=== PATIENT | female | born 1985 | race Caucasian/White ===

== ENCOUNTER 2023-11-20 14:05 | Emergency (ER) | payer OTHER, SELFPAY ==
[2023-11-20] VITALS (7 sets, daily range): BP systolic 74–141; BP diastolic 50–90; BMI 22.6
[2023-11-20 14:54] LABS: Urine Albumin 1+ (Neg - Trace); Urine Bilirubin Negative (Negative); Urine Character Very Cloudy (Clear); Urine Color Yellow; Urine Glucose Negative (Negative); Urine Ketone 1+ (Negative); Urine Leukocyte Trace (Negative); Urine Nitrite Negative (Negative); Urine Occult Blood 4+ (Negative); Urine Urobilinogen Negative (Neg - 1+)
[2023-11-20 15:15] LABS: Urine Squamous Cell >30 /LPF (Few)
[2023-11-20 15:16] LABS: Urine Bacteria Few (Negative)
[2023-11-20 15:17] LABS: Urine Red Blood Cell 60-70 /HPF (0-2); Urine White Cell 0-2 /HPF (0-5)
[2023-11-20 17:25] LABS: % Basophils 0.8 % (0-2); % Eosinophils 1.3 % (0-6); % Immature Granulocytes 0.3 % (0-0.5); % Lymphocytes 28.2 % (20.5-51.1); % Monocytes 6.7 % (1.7-9.3); % Neutrophils 62.7 % (42.2-75.2); Absolute Eosinophils 0.1 10^3/uL (0-0.7); Absolute Lymphocytes 1.1 10^3/uL (1.2-3.4); Absolute Monocytes 0.3 10^3/uL (0.1-0.6); Absolute Neutrophils 2.4 10^3/uL (1.4-6.5); Hematocrit 34.4 % (37.0-47.0); Hemoglobin 11.9 g/dL (12.0-16.0); Mean Corp Hgb Conc. 34.6 g/dL (33.0-37.0); Mean Corpuscular Volume 92.5 fL (81.0-99.0); Mean Platelet Volume 9.7 fL (7.4-10.4); Nucleated Red Blood Cells % 0 %; Platelet Count 239 10^3/uL (130-400); Red Blood Cell Count 3.72 10^6/uL (4.20-5.40); Red Cell Dist. Width 14.2 % (11.5-14.5); White Blood Cell Count 3.9 10^3/uL (4.8-10.8)
--- NOTE | 2023-11-20 17:55 | ED.GENMED ---
History of Present Illness
<Tian Rizvi PA-C - Last Filed: 11/20/23 20:24>
General
Chief Complaint: Urinary Symptoms
Time Seen by Provider: 11/20/23 16:58
History of Present Illness
History of Present Illness:
38-year-old female presents the emergency department for evaluation of nonresolving intermittent hematuria, dysuria, and urinary urgency ongoing for the past 2 weeks. She has been treated as an outpatient with 2 rounds of Macrobid and 1 round of
Bactrim without complete relief. Denies any fevers but does have chills and lower abdominal pain as well as low back pain. No vomiting or diarrhea. Has a history of cervical cancer currently in remission
Past History
<Tian Rizvi PA-C - Last Filed: 11/20/23 20:24>
Past History
ED Past Medical History: Asthma and Other (mitral valve regurg)
ED Past Surgical History: None
Social History
Tobacco: Non-smoker
Alcohol: Occasional
Personal:
Living: with family
Family History
Family History: Negative Early CAD or Sudden
Review of Systems
<Tian Rizvi PA-C - Last Filed: 11/20/23 20:24>
Review of Systems
Allergies reviewed?: Yes
All Other Systems: ROS reviewed and negative except as documented in HPI and ROS
Phy Exam
<Tian Rizvi PA-C - Last Filed: 11/20/23 20:24>
Physical Exam
Physical Exam:
GEN: Well appearing, NAD, WDWN
HEENT: Oral mucosa moist, no scleral icterus
Cardiac: Regular rate
Lung: No respiratory distress, no tachypnea
Abdomen: Soft, nontender, no CVA tenderness
MSK: No gross deformity or injuries
Skin: Good color, no pallor or jaundice, no rashes
Neuro: AO x3, moves all extremities freely
Psych: Calm, cooperative
Course
<Tian Rizvi PA-C - Last Filed: 11/20/23 20:24>
Orders/Labs/Results
Orders:
Orders
11/20/23 14:22
Test Result ONCE
11/20/23 14:28
Urinalysis Reflex To Culture Urgent
Date Specimen was Collected: 11/20/23
Time Specimen was Collected: 14:22
Urine Microscopic Reflex Cult Urgent
11/20/23 17:16
Complete Blood Count/With Diff Urgent
11/20/23 17:36
Comprehensive Metabolic Panel Urgent
HCG, Serum Qualitative Screen Urgent
11/20/23 17:53
CT Abd/pelvis Wo Iv Cont Urgent
Reason For Exam: bilat flank pain, persistent UTI
Abnormal Lab Results
11/20/23 11/20/23 11/20/23
14:28 17:16 17:36
WBC 3.9 L 10^3/uL
(4.8-10.8)
RBC 3.72 L 10^6/uL
(4.20-5.40)
Hgb 11.9 L g/dL
(12.0-16.0)
Hct 34.4 L %
(37.0-47.0)
MCH 32.0 H pg
(27.0-31.0)
Absolute Lymphs (auto) 1.1 L 10^3/uL
(1.2-3.4)
BUN 6 L mg/dl
(7-17)
Urine Ketones 1+ A
(Negative)
Ur Occult Blood Reflex 4+ A
(Negative)
Leukocyte Esterase Rfl Trace A
(Negative)
Urine RBC 60-70 A /HPF
(0-2)
Urine Bacteria (Reflex) Few A
(Negative)
Urine Albumin (Reflex) 1+ A
(Neg - Trace)
11/20/23 17:16
11/20/23 17:36
Vital Signs
Initial and Last Documented VS:
Initial Vital Signs
Temp Pulse Resp BP Pulse Ox
98.4 F 99 18 137/90 98
11/20/23 14:17 11/20/23 14:17 11/20/23 14:17 11/20/23 14:17 11/20/23 14:17
Last Documented Vital Signs
Temp Pulse Resp BP Pulse Ox
98.2 F 88 18 122/74 99
11/20/23 19:36 11/20/23 19:36 11/20/23 19:36 11/20/23 19:36 11/20/23 19:36
<Shelbie Doyle, DO - Last Filed: 11/20/23 19:39>
Orders/Labs/Results
Orders:
Orders
11/20/23 14:22
Test Result ONCE
11/20/23 14:28
Urinalysis Reflex To Culture Urgent
Date Specimen was Collected: 11/20/23
Time Specimen was Collected: 14:22
Urine Microscopic Reflex Cult Urgent
11/20/23 17:16
Complete Blood Count/With Diff Urgent
11/20/23 17:36
Comprehensive Metabolic Panel Urgent
HCG, Serum Qualitative Screen Urgent
11/20/23 17:53
CT Abd/pelvis Wo Iv Cont Urgent
Reason For Exam: bilat flank pain, persistent UTI
Abnormal Lab Results
11/20/23 11/20/23 11/20/23
14:28 17:16 17:36
WBC 3.9 L 10^3/uL
(4.8-10.8)
RBC 3.72 L 10^6/uL
(4.20-5.40)
Hgb 11.9 L g/dL
(12.0-16.0)
Hct 34.4 L %
(37.0-47.0)
MCH 32.0 H pg
(27.0-31.0)
Absolute Lymphs (auto) 1.1 L 10^3/uL
(1.2-3.4)
BUN 6 L mg/dl
(7-17)
Urine Ketones 1+ A
(Negative)
Ur Occult Blood Reflex 4+ A
(Negative)
Leukocyte Esterase Rfl Trace A
(Negative)
Urine RBC 60-70 A /HPF
(0-2)
Urine Bacteria (Reflex) Few A
(Negative)
Urine Albumin (Reflex) 1+ A
(Neg - Trace)
11/20/23 17:16
11/20/23 17:36
Vital Signs
Initial and Last Documented VS:
Initial Vital Signs
Temp Pulse Resp BP Pulse Ox
98.4 F 99 18 137/90 98
11/20/23 14:17 11/20/23 14:17 11/20/23 14:17 11/20/23 14:17 11/20/23 14:17
Last Documented Vital Signs
Temp Pulse Resp BP Pulse Ox
98.2 F 88 18 122/74 99
11/20/23 19:36 11/20/23 19:36 11/20/23 19:36 11/20/23 19:36 11/20/23 19:36
<Tian Rizvi PA-C - Last Filed: 11/20/23 20:24>
MDM/Problems Addressed
MDM/Problems Addressed:
She is clinically well-appearing with normal labs. CT was obtained to evaluate for urinary obstructive pathology in the setting of failure of outpatient management. CT was reassuring with the exception of bladder wall thickening. Will treat
patient with course of cefdinir however she is strongly advised to follow-up with urology if symptoms do not resolve as given the burden of hematuria and her urine specimen I am concerned for possible occult malignancy if her symptoms do not resolve
<Tian Rizvi PA-C - Last Filed: 11/20/23 20:24>
*Critical Care Note
Total Time (30-74mins, 75-104mins- exclusive of procedures): Not Applicable
ED Attending Note
<Tian Rizvi PA-C - Last Filed: 11/20/23 20:24>
-
Portions of this chart may have been created with voice recognition software.� Occasional wrong word or��sound alike� substitutions may have occurred due to the inherent limitations of voice recognition software.
<Shelbie Doyle DO - Last Filed: 11/20/23 19:39>
ED Attending Note
Patient seen and examined by attending physician: Yes
I performed the substantive portion of visit, reviewed & personally made and approve the management plan that is documented in note by myself or LETTY.: Yes
I performed a history and physical exam of patient and discussed management with resident, I reviewed resident's note and agree with documented findings and plan of care.: Yes
ED Attending Note:
Patient seen and evaluated at bedside, 38-year-old female with prior history of cervical cancer presenting for persistent urinary symptoms. Patient reports for the past 3 weeks she has had dysuria and hematuria. She has been on several
antibiotics, Macrobid and Bactrim, however symptoms are not improving. She is starting to have lower abdominal pain and back pain. In discussion with her primary, decided to come to the hospital for rule out renal pathology or nephrolithiasis.
Patient was also concern for possible gynecologic pathology given history of cervical cancer, however had Pap smear by sign language translator after symptoms started, negative. Denies fever. Vital signs on arrival initially concerning for hypotension, which
has since improved with some IV fluids.
On exam, patient is well-appearing, nontoxic. Generalized tenderness to the abdomen and the lower back. Concern for pyelonephritis versus nephrolithiasis versus infected stone. Urinalysis obtained, does have some leukocytes and blood. Normal
renal function, no leukocytosis. Plan for CT abdominal imaging for further evaluation.
19:25 -CT without acute pathology, with the exception of cystitis. Patient otherwise hemodynamically stable. Will start on third-generation cephalosporin with continued plan for outpatient follow-up. Urine culture sent.
Discharge Plan
Departure
Patient Disposition: Home (Routine Discharge)
Date of Disposition: 11/20/23
Time of Disposition: 19:29
Patient with high blood pressure during this ER visit?: No
Discharge Problem:
Recurrent urinary tract infection
Instructions: Urinary Tract Infection, Adult (DC)
Prescriptions:
New
cefdinir 300 mg capsule
300 mg PO Q12H 7 Days Qty: 14 0RF
No Action
cetirizine 10 MG tablet
10 mg PO PRN PRN (Reason: allergies, rashes)
B loebcyr-D-S-Zn 1 EACH tablet
1 tab PO DAILY
norethindrone-e.estradiol-iron [Lo Loestrin Fe] 1 EACH tablet
1 tab PO DAILY
Vitamin D
50 mcg PO DAILY
multivitamin 1 EACH tablet
1 ea PO DAILY
Referrals:
Lv Aguirre DO [Family Provider] -
Davis Anedrsen MD [Active] -
Activity Restrictions/Additional Instructions:
If you continue to have symptoms despite the antibiotics or if you develop recurrent symptoms after completion of the antibiotics please follow-up with urology as you may require a cystoscopy or camera evaluation of the bladder
Interventions
Interventions:
*Risk Screen - Suicide Last Done: 11/20/23 14:17
*General Assessment Last Done: 11/20/23 14:17
*Neglect/Abuse Screening Last Done: 11/20/23 14:17
ED- Fall Risk Assessment Last Done: 11/20/23 16:37
*ED COVID-19 Vaccine History Last Done: 11/20/23 16:22
*Nursing Disposition Last Done: 11/20/23 19:36
ED-Female Genitourinary Assessment Last Done: 11/20/23 16:37
Discharge Date and Time
Discharge Date/Time: 11/20/23 19:38
Print Language: SPANISH
[2023-11-20 18:15] LABS: ALT (SGPT) 11 U/L (0-35); AST (SGOT) 19 U/L (14-36); Albumin 3.9 g/dl (3.5-5.0); Alkaline Phosphatase 40 U/L (38-126); Blood Urea Nitrogen 6 mg/dl (7-17); Calcium 9.3 mg/dl (8.4-10.2); Carbon Dioxide 24 mmol/L (22-30); Chloride 104 mmol/L (98-107); Estimated Creatinine Clearance 95 ml/min; Glucose 93 mg/dl (70-99); HCG, Serum Qualitative Screen Negative; Sodium 139 mmol/L (135-145); Total Bilirubin 0.8 mg/dl (0.2-1.3); Total Protein 6.4 g/dl (6.3-8.2); eGFR > 60.00
== END 2023-11-20 19:38 | disposition home or self-care (01) ==
LOC: EMR 14:05
PROVIDERS: Student in an Organized Health Care Education/Training Program; EMERGENCY PHYSICIAN Student in an Organized Health Care Education/Training Program; FAMILY PHYSICIAN Family Medicine
DX: N39.0 Urinary tract infection, site not specified (principal); N30.91 Cystitis, unspecified with hematuria; J45.909 Unspecified asthma, uncomplicated; I34.0 Nonrheumatic mitral (valve) insufficiency; Z85.41 Personal history of malignant neoplasm of cervix uteri; Z87.440 Personal history of urinary (tract) infections
CPT/HCPCS: 99285; 74176; 80053; 81003; 81015; 84703; 85025; 87086

== ENCOUNTER → 2025-02-10 07:12 | Outpatient (REF) | payer BC, SELFPAY | LOC: RAD 07:12 | PROVIDERS: ATTENDING PHYSICIAN Obstetrics & Gynecology; FAMILY PHYSICIAN Family Medicine | DX: C53.1 Malignant neoplasm of exocervix (principal) | CPT/HCPCS: 71260; 74177; Q9967 ==